=== PATIENT | male | born 1980 | race Native Hawaiian/Other Pacific Islander ===

== ENCOUNTER 2024-07-10 12:47 | Emergency (ER) | payer OTHER, SELFPAY ==
[2024-07-10 13:04] VITALS: BP 149/91; PULSE 84; RESP 18; TEMP 36.6; O2SAT 99; BMI 28.0
--- NOTE | 2024-07-10 13:09 | ED.GENADULT ---
HPI - General Adult General Chief complaint: Eye Problems Stated complaint: asking to check eye Time Seen by Provider: 07/10/24 15:59 History of Present Illness ED Provider: Glenny PENA narrative: The patient is a 43-year-old male. He is originally from [facility] [place]. He has been in his country for some time. He recently relocated to [facility] from [facility]. He has been receiving medical care through a clinic in [facility]. His provider was a nurse practitioner, Valorie Swanson. The patient says that he has had significant eye problems with his left eye since around 2015. He has had little or no vision in his left eye for years. He says that he has been prescribed eyedrops that he puts in both eyes. He can not tell me the name of the eyedrops. He cannot tell me his diagnosis. He comes to the emergency room today because he says that he is running out of the eyedrops and has not been able to establish any local care and [facility]. He says that he has an appointment at some kind of primary care clinic in November of 2024 but he says the clinic is far away from where he lives and he does not have any other means of getting medication refills at this point. The patient says that his vision in his eyes is at his baseline currently. He does not have any pain in either of his eyes. The patient has a apparently been prescribed atorvastatin and amlodipine in the past. Related Data Previous Rx's ?Medication ?Instructions ?Recorded amlodipine 10 mg tablet 10 mg PO DAILY #30 tabs 07/10/24 atorvastatin 10 mg tablet 10 mg PO DAILY #30 tabs 07/10/24 latanoprost 0.005 % eye drops 1 drp ophthalmic (eye) QPM #7.5 mL 07/10/24 Allergies Allergy/AdvReac Type Severity Reaction Status Date / Time No Known Allergies Allergy Verified 07/10/24 13:06 Review of Systems Review of Systems: Yes all other systems are reviewed and are negative [facility] Social History Social History Advance Directives: No Advance Directives Information Provided: Yes Do you have a plan to hurt others: No Plan Physical Exam ED Vital Signs: Vital Signs - 24 hr 07/10/24 13:04 07/10/24 18:45 Temperature 97.9 F 97.9 F Pulse Rate 84 84 Respiratory Rate 18 18 Blood Pressure 149/91 H 149/91 H Pulse Oximetry 99 99 Oxygen Delivery Method Room Air Room Air BMI result Body Mass Index 28.0 Const Other: The patient is a 43-year-old male who is awake and alert and does not appear acutely ill. HENMT Other: The face is symmetrical. Mucous membranes moist. Eyes Other: Pupils are round equal. Conjunctivae are clear. Extraocular movements are intact. The patient's vision in the right eye is 20/30. The patient has virtually no vision in the left eye and the patient says this is chronic. The left pupil appears hazy. Intra-ocular pressure in the right eye is 19. Intra-ocular pressure in left eye is 30. Neck Neck: Yes normal visual inspection, Yes full ROM and Yes no lymphadenopathy Resp Effort & Inspection: normal respiratory effort Auscultation: clear to auscultation bilaterally Cardio Rate: regular rate Rhythm: regular rhythm Heart sounds: S1 normal heart sound present and S2 normal heart sound present Skin Other: the skin is dry and unremarkable Neuro Other: the patient is awake and alert with normal mental status. He has a hazy left pupil and no vision in the left eye which he says is chronic. The right pupil is normal and reactive. Extraocular movements are intact. The face is symmetrical. Speech is clear. He moves his extremities normally and appropriately. His gait is normal. Aside from his poor left eye vision he is neurologically intact. Extrem Other: no peripheral edema. Course Course Course Narrative: RME, this is a rapid medical exam performed by Scar Gerber please refer to primary provider for complete H&P- 43 year old male presents for evaluation of left eye visual loss. He reports that this is a chronic issue. He has been seen in [facility] as well as [place] and had been receiving drops but he does not know the name. He reports that he can see very little out of the left eye which has been going on for years. He is also looking to get glasses. Plan for visual acuity testing and eye exam. Medications Administered Discontinued Medications Generic Name Dose Route Start Last Admin Trade Name Freq PRN Reason Stop Dose Admin Tetracaine HCl 1 drop 07/10/24 17:10 07/10/24 17:48 Tetracaine Hcl 0.5% Oph Ursula 5 Ml Drops EYE-BOTH 07/10/24 17:11 1 drop ONCE ONE Administration Medical Decision Making Medical Decision Making [facility] Narrative: I was able to contact the patient has previous primary care office in [facility]. He has been seeing an forming machine upkeep mechanic helper name Dr. Anthony Nicole. Apparently he has been blind in the left eye for many years. According to Dr. 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 in addition the patient has had primary open-angle glaucoma of both eyes and has been on latanoprost. At his most recent visit to the office in [place] his intra-ocular pressures were 26 in the right eye and 37 in the left eye. Apparently the forming machine upkeep mechanic helper knew the patient was leaving [facility] and tried to refer the patient to a clinic at [facility] in [place] but the patient has not able to travel that far. The patient is now living in [place] and has not yet established local primary care doctor or any kind of eye doctor locally. He has [employer], a [employer] product. the patient's intra-ocular pressure in the right eye today is 19. It is 30 in the left eye. I confirmed with the patient's previous forming machine upkeep mechanic helper that the patient has had virtually no vision in the left eye for many years and there is no expectation that he will have any recovery of vision in that eye. Therefore preservation of the vision in the right eye is extremely important. I was also able to learn that the patient normally takes 10 mg of amlodipine daily and atorvastatin 10 mg daily. I will be prescribing latanoprost, amlodipine, and atorvastatin for the patient today. I asked our pillowcase maker for assistance with this case with regard to follow-up. We will be attempting to refer the patient to [facility] in [place]. The patient is also given contact information for local primary care offices to try to establish a PCP as well. The patient is primarily a speaker of [employer] although he seems to speak [place]serratian fairly well as well. I communicated with him using our Internet translation service. Discharge Plan Discharge Clinical Impression: Encounter for medication refill, Open-angle glaucoma, Blindness of left eye Patient Disposition: Home, Self-Care Additional Instructions: I have sent prescriptions for your eyedrops (latanoprost), your blood pressure medication amlodipine), and a cholesterol medication (atorvastatin) to the [facility] pharmacy [facility] in [place]. Please fruit picker these prescriptions and resume your usual use of these medications. The pressure in your right eye today was 19 which is fairly good. According to Dr. Nicole when he last saw you the pressure in your right eye was 26. Please resume your normal use of all your medications. You should be contacted by case management tomorrow to help get you an appointment at the eye clinic in [place]. The contact information for this office is provided with these discharge instructions. I am also providing some contact information about local primary care offices. Please contact these primary care offices to see if they can get you an appointment for ongoing primary care. Return to the emergency room if significantly worse. 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
--- OUTSIDE RECORDS SUMMARY | 2024-07-10 17:42 | XMS_ITS | Clinical Summary ---
Author Organization [facility] Address [address] [place] [address] Phone Care Team Providers Care Automation Qtp Tester Name Role Phone Physician, No Pcp Primary Care Provider Unavaila ble Allergies No known active allergies Medications No known medications Medical History Medical History Date Comments Hypertension Social History Tobacco Use Types Packs/Day Years Used Date Smoking Tobacco: Never Smokeless Tobacco: Never Tobacco Cessation:Counseling Given: Not Answered Sex and Gender Information Value Date Recorded Sex Assigned at Not on file Legal Sex Male 11:36 AM EST Gender Identity Not on file Sexual Orientation Not on file Obstetrics History Last Filed Vital Signs Vital Sign Reading Time Taken Comments Blood Pressure 131/82 03/14/2024 11:57 AM EST Pulse 77 03/14/2024 11:57 AM EST Temperature 36.5 ??C (97.7 ??F) 03/14/2024 11:[address] Respiratory Rate 20 03/14/2024 11:57 AM EST Oxygen Saturation 98% 03/14/2024 11:57 AM EST Inhaled Oxygen Concentration - - Weight 78.5 kg (173 lb) 03/14/2024 11:40 AM EST Height 170.2 cm (5' 7 ) 03/14/2024 11:40 AM EST Body Mass Index 27.1 03/14/2024 11:40 AM EST Plan of Treatment Health Maintenance Due Date Last Done Comments DTaP,Tdap,and Td Vaccines (1 - Tdap) 1997 Hepatitis B Vaccines (1 of 3 - 19+ 3-dose series) 1997 COVID-19 Vaccine (2023-2 5 season) 2023 Influenza Vaccine (#1) 2023 Cholesterol Screening (Lipid Panel) 03/14/2024 Colorectal Cancer Screening: Colonoscopy 03/14/2024 Depression Screening 03/14/2024 HIV Screening 03/14/2024 Hepatitis C Screening 03/14/2024 Social Influencers of Health Screening 03/14/2024 HIB Vaccines Aged Out No longer eligi ble based on patient's age to complete this topic HPV Vaccines Aged Out No longer eligi ble based on patient's age to complete this topic Hepatitis A Vaccines Aged Out No long er eligible based on patient's age to complete this topic IPV Vaccines Aged Out No longer eligi ble based on patient's age to complete this topic MMR Vaccines Aged Out No longer eligi ble based on patient's age to complete this topic Meningococcal ACWY Vaccine Aged Out N o longer eligible based on patient's age to complete this topic Meningococcal B Vaccine Aged Out No l onger eligible based on patient's age to complete this topic Pneumococcal Vaccine: Pediat rics (0 to 5 Years) and At-Risk Patients (6 to 64 Years) Aged Out No longer eligible b ased on patient's age to complete this topic RSV Immunization Patients Un gray 20 months Aged Out No longer eligible b ased on patient's age to complete this topic Varicella Vaccines Aged Out No longer eligible based on patient's age to complete this topic Insurance [facility] Care Teams Automation Qtp Tester Relationship Specialty Start Date End Date Physician, No Pcp PCP - General 03/14/24
[2024-07-10] MEDS: Tetracaine HCl 0.5% Oph Sol 5 ML DROPS 1 DROP EYE-BOTH (17:48)
[2024-07-10 18:45] VITALS: BP 149/91; PULSE 84; RESP 18; TEMP 36.6; O2SAT 99
--- NOTE | 2024-07-10 19:21 | MHC.CM.ED ---
CM met with this patient at the request of Dr. Peoples. Pt is from [facility] and speaks [place] Creole. Pt does not understand [place]. CM used the [employer] foreign language interpreter for communication. Pt lives with his . Has no DME. No PCP. No HCP. No DME/services. Has [employer] insurance. He uses [facility] pharmacy on [address] in [place]. Was living near [place]. Has relocated here. Patient has no one who can speak [place] in the area. States he has a government relations manager from the [facility] in [facility] ([phone]). Per Dr. Peoples, patient needs a PCP appointment and a brownfield redevelopment specialist appointment. CM is unable to make any appointments today due to lateness of hour. CM will call [facility] primary care for earliest PCP appointment and will call [facility] in [place] for an appointment with Dr. Angela Posey, brownfield redevelopment specialist. CM will call patient tomorrow with appointments. Pt will call [facility] on another phone to translate appointment times. Pt understands that he must pickler helper his prescriptions tomorrow. He is to take 1 pill daily of his Amlodipine and his Avorstatin and 1 gtt to each eye of his Latanoprost nightly. CM reviewed discharge instructions with patient and foreign language interpreter. Pt was discharge home.
--- NOTE | 2024-07-11 16:38 | MHC.CM.ED ---
CIERA was able to arrange an appointment with a graphics production specialist, Dr. Cruz, at [facility] for 07/15, Monday at 1pm. Pt speaks Slovenian Creole. CM attempted to arrange a local PCP appointment with [facility] primary care in [place], but patient has Jj ARELLANO. Per [facility] Primary Care, patient must change his PCP with his insurance to Dr. Burks, then call back at [phone] for a PCP appointment. Pt has recently located to [place] from [facility]. CM called the patient as arranged yesterday when he was a patient in the ED. Pt called his Railroad Car Repair Supervisor, Jannette. CM spoke with her and relayed all of the above information to her. She will explain it all to Hemant. CM stressed the importance of patient keeping this appointment on Monday. Jannette will arrange an Uber transport to bring patient to and from his appointment with graphics production specialist. ED H&P faxed to Dr. Cruz at [phone]. Dr. Peoples aware.
== END 2024-07-10 18:46 | disposition home or self-care (01) ==
PROVIDERS: Emergency Provider Emergency Medicine
DX: H40.1120 Primary open-angle glaucoma, left eye, stage unspecified (principal); H57.12 Ocular pain, left eye; Z76.0 Encounter for issue of repeat prescription
CPT/HCPCS: 99283

== ENCOUNTER 2025-02-18 10:28 | Outpatient (AMB) | payer OTHER, SELFPAY ==
[2025-02-18 10:41] VITALS: BP 142/80; PULSE 61; RESP 18; O2SAT 99; BMI 26.5
--- NOTE | 2025-02-18 10:41 | A.OFFPC_ITS ---
Vital Signs 02/18/25 10:41 Height 5 ft 11 in Weight 190 lb 4 oz BMI 26.5 BP 142/80 H Blood Pressure Location Lt brachial Position Sitting Respiration 18 Pulse 61 Pulse Source Pulse Oximeter Temp Source Temporal Artery Scan Pulse Oximetry (%) 99 Oxygen Delivery Method Room Air Intake Visit Reasons: [employer]- Establish care- PHQ-9 needed Firewall Security Engineer Required: No Accompanied by: Self / Same As Patient Allergies No Known Allergies Allergy (Verified 02/18/25 11:01) Medication List - Last Reconciled 02/18/25 by DESTINY Valerio-Neal amlodipine 10 mg PO DAILY atorvastatin 10 mg PO DAILY latanoprost 0.005% 1 drp ophthalmic (eye) QPM Tobacco use date assessed: 02/18/25 Dental Screening Dental Screen Date: 02/18/25 Did you have a dental visit in the last 12 months?: Yes Did you have a dental problem in the last 6 months where you did not have access to dental care?: No Was dental information given to patient?: Patient has dentist HPI [employer]- Establish care- PHQ-9 needed HPI Details The patient is a 44 year old patient Creole speaking patient that is presenting to establish care. Firewall Security Engineer service used via iPad. Previous PCP: Denies having any PCP in the [facility]. Reports that he was going to a clinic in [place] and was encouraged to come here for care. Last visit:The patient is unsure Last PE:Reports that it has been a while. Specialist: Ophthalmology ([facility], Dr. Howie Cruz) OBGYN: n/a Past medical history: htn, HLD, Reports that he cannot see anything out his left eye, patient's eye condition? cataract or glaucoma, he is not sure what his eye diagnosis is. He could barely see out of his right eye. Medications: amlodipine, atorvastatin, latanoprost 0.005% Family HX: no Family history Problem: Sent reports that his right foot was broken in his home [place] [facility] in 2022. Reports intermittent pain if he stands for long hours even though he had surgery and the leg is healed. Also reports intermittent left ankle pain that started in 2022 upon coming to [place] and working outside in the snow. Note: Next appt with eye , 03/10/25 [facility] Medical History (Updated 02/22/25 @ 13:00 by KEN Valerio) Glaucoma HTN (hypertension) HLD (hyperlipidemia) Social History Alcohol intake: never Patient Tobacco Use Status: Never used Tobacco e-Cigarette/Vaping Use: Never Used Current occupational status: employed Current occupation: [employer] Cognitive needs: No Hearing needs: No Vision needs: Yes Questionnaire PHQ-9 Over the last 2 weeks, how often have you been bothered by any of the following problems? 1. Little interest or pleasure in doing things: not at all 2. Feeling down, depressed, or hopeless: not at all 3. Trouble falling or staying asleep, or sleeping too much: not at all 4. Feeling tired or having little energy: not at all 5. Poor appetite or overeating: not at all 6. Feeling bad about yourself - or that you are a failure or have let yourself or your family down: not at all 7. Trouble concentrating on things, such as reading the newspaper or watching television: not at all 8. Moving or speaking so slowly that other people could have noticed. Or the opposite - being so fidgety or restless that you have been moving around a lot more than usual: not at all 9. Thoughts that you would be better off or of hurting yourself in some way: not at all Total score: 0 Source: Developed by Drs. Frederic Melgoza, Sigrid Bose, Venkat Duggan and colleagues, with an educational jb from [employer]. Thrive Questionnaire Date Thrive assessed: 02/18/25 I am a: Patient What is your living situation today?: I have a steady place to live Within the past 12 months, did the food you bought not last and you didn't have the money to get more?: Never true Within the past 12 months, did you worry whether your food would run out before you got money to buy more?: Never true Do you have trouble paying for medicines?: I choose not to answer this question Do you have trouble getting transportation to medical appointments?: I choose not to answer this question Do you have trouble paying your heating and electricity bill?: I choose not to answer this question Do you have trouble taking care of your child, family member or friend?: I choose not to answer this question Do you have trouble with day-to-day activities such as bathing, preparing meals, shopping, managing finances, etc.?: I choose not to answer this question Are you currently unemployed and looking for a job?: I choose not to answer this question Are you interested in more education?: I choose not to answer this question Please select the resources that you would like help with: None Currently or been in a relationship where the following occur: No concerns reported THRIVE Score: 0 AUDIT C Alcohol Use Questionnaire (AUDIT-C) 1. How often do you have a drink containing alcohol?: Never Total Score: 0 MANUEL-7 AMB Questionnaire MANUEL-7 Date MANUEL - 7 assessed: 02/18/25 Feeling nervous, anxious, or on edge: 0 = Not at all Not being able to stop or control worryin = Not at all Worrying too much about different things: 0 = Not at all Trouble relaxin = Not at all Being so restless that it is hard to sit still: 0 = Not at all Becoming easily annoyed or irritable: 0 = Not at all Feeling afraid as if something awful might happen: 0 = Not at all Total MANUEL-7 score (0-4 normal; 5-9 mild; 10-14 moderate; 15-21 severe): 0 Source: Developed by Drs. Frederic Melgoza, Sigrid Bose, Venkat Duggan and colleagues, with an educational jb from [employer]. Review of Systems Const Denies headache(s) Eyes Denies loss of vision ENT Denies vertigo, Denies dizziness, Denies headache(s) and Denies sore throat Card Denies chest pain, Denies leg edema and Denies lightheadedness Resp Denies cough, Denies hemoptysis and Denies wheezing GI Denies abdominal pain, Denies melena, Denies constipation, Denies diarrhea and Denies vomiting Denies dysuria, Denies urinary frequency and Denies urinary urgency Musc Denies arthralgias, Denies joint swelling, Denies numbness and Denies tingling Neuro Denies Abnormal speech present, Denies behavioral changes, Denies vertigo, Denies dizziness, Denies headache(s), Denies loss of vision, Denies memory loss, Denies numbness and Denies tingling Psych Denies anxiety, Denies behavioral changes, Denies depression, Denies memory loss and Denies panic attacks Colton/Lymph Denies easy bleeding and Denies easy bruising Aller/Immun Denies wheezing Physical exam (Primary Care) Vital Signs: Last Vital Signs Pulse 61 02/18/25 10:41 Resp 18 02/18/25 10:41 BP 142/80 H 02/18/25 10:41 Pulse Ox 99 02/18/25 10:41 Oxygen Delivery Method Room Air 02/18/25 10:41 BMI result Body Mass Index 26.5 Tobacco/Smoking Status: Tobacco use Status Tobacco use date assessed 02/18/25 02/18/25 10:44 Patient Tobacco Use Status Never used Tobacco 02/18/25 10:59 e-Cigarette/Vaping Use Never Used 02/18/25 10:59 PHQ-9: PHQ-9 Score PHQ-9: Total score 0 02/18/25 11:14 Thrive Assessment: Date of Thrive Assessment Date Thrive assessed 02/18/25 02/18/25 10:44 Currently or been in a relationship where the following occur: No concerns reported Const General: healthy appearing, no acute distress, alert and awake Nutritional Appearance: well nourished Orientation/consciousness: oriented to person, oriented to place and oriented to time HENMT Ears: TM's normal bilaterally General nose exam: Normal nasal mucous membranes and turbinates present Eyes Conjunctivae: conjunctivae normal Sclerae: sclerae normal Pupils: Equal, round and reactive pupils present Neck Neck: Yes no lymphadenopathy and Yes no JVD Thyroid: Thyroid normal Carotids: no bruits Resp Effort & Inspection: normal respiratory effort and not tachypneic Auscultation: no crackles, no rales, no rhonchi and no wheezes Cardio Rate: regular rate Rhythm: regular rhythm Heart sounds: no murmurs and normal S1 and S2 GI Palpation (GI): Soft to palpation, nontender, no hepatomegaly and no splenomegaly Auscultation: normal bowel sounds General: Yes no CVA tenderness Back/Spine/Pelvis Back: no CVA tenderness Skin General skin exam: dry skin and scars (around right lower leg s/p fx and surgery ) Neuro General: oriented to person, oriented to place and oriented to time Cranial nerves: Yes Equal, round and reactive pupils present Speech: No Abnormal speech present Gait exam (Neuro): Normal gait present Motor exam (neuro): no tremor noted Extrem Right upper extremity: full ROM Left upper extremity: full ROM Right lower extremity: full ROM; no edema Left lower extremity: full ROM; no edema Psych Mental Status: mental status grossly normal Speech and movement: Normal speech and movement present Affect: normal affect Attitude: cooperative Thought process: Normal thought process present Coding Level of Care Code New Pt Level 4 (61596) Diagnoses Hypertension, unspecified type I10 Hypertension type: unspecified Hyperlipidemia, unspecified hyperlipidemia type E78.5 Hyperlipidemia type: unspecified Glaucoma of both eyes, unspecified glaucoma type H40.9 Glaucoma type: unspecified Laterality: bilateral Pain in right lower leg M79.661 Chronic pain of left ankle M25.572; G89.29 Chronicity: chronic Time Spent (min) 39 Assessment & Plan Assessment & Plan (1) HTN (hypertension): Code(s): I10 - Essential (primary) hypertension Category: Medical Qualifiers: Hypertension type: unspecified Qualified Code(s): I10 - Essential (primary) hypertension Plan: Blood pressure 142/80 mm Hg goal is systolic less than 130 mm Hg-the patient ran out of his medication for a couple of weeks Amlodipine 10 mg daily refilled for the patient Reinforced low-salt diet (2) HLD (hyperlipidemia): Code(s): E78.5 - Hyperlipidemia, unspecified Category: Medical Qualifiers: Hyperlipidemia type: unspecified Qualified Code(s): E78.5 - Hyperlipidemia, unspecified Plan: Continue atorvastatin 10 mg daily We will obtain lipid panel to further evaluate (3) Glaucoma: Code(s): H40.9 - Unspecified glaucoma Category: Medical Qualifiers: Glaucoma type: unspecified Laterality: bilateral Qualified Code(s): H40.9 - Unspecified glaucoma Plan: Continue latanoprost 0.005% 1 drop ophthalmic q.p.m. Follow up with Ophthalmology as scheduled-Next appt with eye , 03/10/25 (4) Pain in right lower leg: Code(s): M79.661 - Pain in right lower leg Category: Medical Plan: s/p surgery fx of right lower leg (2022). Scar tissue around the leg. Recurrent intermittent pain, especially when stands for extended periods. Celebrex 200 mg b.i.d. p.r.n. ordered. Explained to the patient to only take this medication when absolutely needed because chronic use skin affect his kidney function. (5) Left ankle pain: Code(s): M25.572 - Pain in left ankle and joints of left foot Category: Medical Qualifiers: Chronicity: chronic Qualified Code(s): M25.572 - Pain in left ankle and joints of left foot; G89.29 - Other chronic pain Plan: Reports left ankle pain started after [place] the [place] working in the [place]. Normal findings on exam. We will continue to monitor. Consider an x-ray of the ankle in the future if persists. Orders: Orders Comprehensive [place]. Panel Fast 02/18/25 Z00. - Encounter for general adult medical examination without abnormal findings Vitamin D 25-OH Total 02/18/25 Z. - Encounter for general adult medical examination without abnormal findings TSH reflex Free T4 02/18/25 Z. - Encounter for general adult medical examination without abnormal findings Lipid Panel 02/18/2500. - Encounter for general adult medical examination without abnormal findings Complete Blood Count Auto Diff 02/18/25 Z00.00 - Encounter for general adult medical examination without abnormal findings UA CC w/rflx Micro + Cult 02/18/25 Z00. - Encounter for general adult medical examination without abnormal findings Medications: New celecoxib (Celebrex) 200 mg PO BID PRN 30 caps 0RF pain Refilled atorvastatin 10 mg PO DAILY 90 tabs 3RF amlodipine 10 mg PO DAILY 90 tabs 3RF latanoprost 0.005% 1 drp ophthalmic (eye) QPM 7.5 mL 3RF
== END 2025-02-18 11:38 | disposition home or self-care (01) ==
LOC: HO.HMCH 10:29
DX: I10 Essential (primary) hypertension (principal); E78.5 Hyperlipidemia, unspecified; H40.9 Unspecified glaucoma; M79.661 Pain in right lower leg; M25.572 Pain in left ankle and joints of left foot; G89.29 Other chronic pain

== ENCOUNTER → 2025-02-18 10:28 | Outpatient (BNVA) | payer OTHER, SELFPAY | DX: I10 Essential (primary) hypertension (principal); E78.5 Hyperlipidemia, unspecified; H40.9 Unspecified glaucoma; M79.661 Pain in right lower leg; M25.572 Pain in left ankle and joints of left foot; G89.29 Other chronic pain | CPT/HCPCS: 99202 ==